=== PATIENT | male | born 1955 | race Caucasian/White ===

== ENCOUNTER → 2021-11-17 | Outpatient (CLI) | payer MEDICARE, BC, SELFPAY ==
[2021-11-17 12:12] LABS: Absolute Lymphocyte Count 2.08 X10^3/uL (0.83-4.51); Absolute Neutrophil Count 3.7 X10^3/uL (2.0-7.7); Basophil# 0.03 X10^3/uL; Basophil% 0.5 % (0-1); Eosinophil# 0.03 X10^3/uL; Eosinophils% 0.5 % (0-5); Hematocrit 44.7 % (40-54); Hemoglobin 14.9 g/dL (13.0-16.5); Lymphocyte # 2.08 X10^3/ul (0.83-4.51); Lymphocyte % 33.2 % (19-41); Mean Corp Hgb Conc 33.3 g/dL (32-36); Mean Corpuscular Hgb 29.1 pg (27.0-32.0); Mean Corpuscular Volume 87.3 fL (80-94); Mean Platelet Vol. 8.6 fl (6.2-12.0); Monocyte# 0.44 X10^3/uL; NRBC Flagged by Analyzer 0 % (0-5); Neutrophil # 3.67 X10^3/uL (2.7-7.7); Neutrophil % 58.5 % (47-70); Platelet Count 214 K/mm3 (150-450); RBC Distribution Width CV 13.2 % (11.6-14.6); RBC Distribution Width SD 42.4 fl (35.1-43.9); Red Blood Count 5.12 M/mm3 (4.6-6.2); White Blood Count 6.3 K/mm3 (4.4-11.0)
[2021-11-17 12:44] LABS: Vitamin D,25 Hydroxy 31.7 ng/mL
[2021-11-17 13:07] LABS: ALB/GLOB Ratio 1.2 RATIO (0.9-2.4); AST(SGOT) 12 U/L (15-37); Alanine Aminotransfer ALT/SGPT 25 U/L (16-61); Albumin, Serum 3.8 g/dL (3.2-5.0); Alkaline Phosphatase 72 U/L (45-117); Anion Gap 8 (5-15); BUN 18 mg/dL (7-18); BUN/Creat Ratio 19.1 RATIO (10-20); Calcium,Total 8.8 mg/dL (8.5-10.1); Chloride 106 mmol/L (98-107); Cholesterol 103 mg/dL (200); Creatinine, Serum 0.94 mg/dL (0.70-1.30); EST Glomerular Filtration Rate 85 mL/min (>60); Est Glom Filt Rate - Afr Amer 103 mL/min (>60); Globulin 3.3 g/dL (2.2-4.2); Glucose 97 mg/dL (74-106); High Density Lipoprotein 70 mg/dL; PSA,Total - Annual Screen 0.64 ng/mL (0.00-4.00); Potassium 3.9 mmol/L (3.5-5.1); Protein, Total 7.1 g/dL (6.4-8.2); Sodium Level 140 mmol/L (136-145); Thyroid Stim Hormone (TSH) 2.12 uIU/mL (0.358-3.74); Triglycerides 60 mg/dL; Very Low Density Lipoprotein 12 mg/dL (5-40)
== END | disposition home or self-care (01) ==
LOC: MTLAB 11:05
PROVIDERS: PCP Internal Medicine; Referring Provider Internal Medicine; Visit Provider Internal Medicine
DX: I49.49 Other premature depolarization (principal); Z87.448 Personal history of other diseases of urinary system; Z12.5 Encounter for screening for malignant neoplasm of prostate; E78.5 Hyperlipidemia, unspecified; E55.9 Vitamin D deficiency, unspecified
CPT/HCPCS: 36415; 80053; 80061; 82306; 84153; 84443; 85025; G0103

== ENCOUNTER 2021-12-29 06:02 | Day surgery (SDC) | payer MEDICARE, BC, SELFPAY ==
[2021-12-29] VITALS (11 sets, daily range): BP systolic 107–145; BP diastolic 79–101; PULSE 76–95; RESP 16; TEMP 36.2–36.8; O2SAT 93–99; BMI 29.2
--- NOTE | 2021-12-29 06:09 | PCM.HP.STD ---
[facility] - General General Date of Service: 12/29/21 Chief Complaint: Screening for intestinal cancer [facility] Narrative LORE VALENTINE, is a 66 M who presents for screening colonoscopy today. He has not had a previous one. He denies any abdominal pain. No bright red blood per rectum or melena. No unexpected weight loss. He states that he tolerated the bowel prep well. [facility] Medical History (Updated 12/26/21 @ 15:43 by Zenaida High) Back pain Dislocation, shoulder History of pain when walking Non-smoker Wears glasses Home Medications NK 11/09/21 [History Last Taken Unknown] Allergy/AdvReac Type Severity Reaction Status Date / Time No Known Allergies Allergy Verified 12/26/21 15:38 Family History Father Skin cancer Bladder cancer Social History adopted: No household members: spouse housing: house current occupational status: other other: self employed in [employer] Smoking Status: Never smoker alcohol intake: never details: never been drunk substance use type: does not use well-balanced diet: daily or most days caffeine: Yes eating out: 1-3 times/week during the past year weight has: remained stable what type of physical activity do you participate in: walking sacha/catholic: [employer] seatbelt use: always do you feel safe at home: Yes ROS Constitutional Constitutional: Reports systems reviewed and no addt'l complaints, except as documented Cardiovascular Cardiovascular: Denies chest pain Respiratory/Chest Respiratory/Chest: Denies shortness of breath at rest Gastrointestinal Gastrointestinal: Denies abdominal pain, change in bowel habits, hematochezia or melena Physical Exam Const alert, oriented x3 and no apparent distress General Appearance: cooperative and comfortable Eyes General Eye: normal appearance of both eyes Neck General: normal visual inspection Chest inspection of chest normal Resp Effort and Inspection: able to speak in complete sentences and symmetric chest movement Auscultation: clear to auscultation bilaterally Cardio regular rate and regular rhythm GI soft to palpation, non-tender and non-distended Extremity no calf tenderness Neuro oriented x3 Psych thought process normal Assessment & Plan Assessment/Plan (1) Colon cancer screening: PLAN: Plan to proceed with a screening colonoscopy with possible biopsy or polypectomy as indicated. The patient presents via open access today. He has not had a previous colonoscopy. He has had an opportunity to ask and have questions answered. We will proceed as noted. Jose Cruz Kumar M.D., F.A.C.S.
[2021-12-29] MEDS: Lactated Ringers 1,000 ML 15 ML IV (06:10)
[2021-12-29] MEDS: Midazolam 5 MG/ML Syringe (06:54)
--- NOTE | 2021-12-29 07:21 | OP.COLON_ITS ---
Patient Name: Colby Bar Procedure Date: 12/29/2021 6:53 AM Date of : 1955 Age: 66 Procedure: Colonoscopy Indications: Screening for colorectal malignant neoplasm Providers: Jose Cruz Kumar MD Referring MD: Ariane Easton Md Medicines: Midazolam 3.5 mg IV, Meperidine 100 mg IV Patient Profile: Last Colonoscopy: none. The patient's first colonoscopy is today. Complications: No immediate complications. Procedure: Pre-Anesthesia Assessment: - Prior to the procedure, a History and Physical was performed, and patient medications and allergies were reviewed. The patient's tolerance of previous anesthesia was also reviewed. The risks and benefits of the procedure and the sedation options and risks were discussed with the patient. All questions were answered, and informed consent was obtained. Prior Anticoagulants: The patient has taken no previous anticoagulant or antiplatelet agents. ASA Grade Assessment: II - A patient with mild systemic disease. After reviewing the risks and benefits, the patient was deemed in satisfactory condition to undergo the procedure. After I obtained informed consent, the scope was passed under direct vision. Throughout the procedure, the patient's blood pressure, pulse, and oxygen saturations were monitored continuously. The Colonoscope was introduced through the anus and advanced to the cecum, identified by appendiceal orifice and ileocecal valve. The colonoscopy was performed without difficulty. The patient tolerated the procedure well. The quality of the bowel preparation was good. The ileocecal valve and the appendiceal orifice were photographed. Moderate Sedation: Moderate (conscious) sedation was personally administered by the endoscopist. The following parameters were monitored: oxygen saturation, heart rate, blood pressure, and response to care. Total physician intraservice time was 15 minutes. Scope In: 7:02:10 AM Scope Withdrawal Time 0 hours 6 minutes 11 seconds Scope Out: 7:14:44 AM Total Procedure Duration Time 0 hours 12 minutes 34 seconds Findings: The digital rectal exam findings include non-thrombosed internal hemorrhoids and internal hemorrhoids that prolapse with straining, but spontaneously regress to the resting position (Grade II). Pertinent negatives include normal prostate (size, shape, and consistency). Multiple diverticula were found in the entire colon. The exam was otherwise without abnormality. Impression: - Non-thrombosed internal hemorrhoids and internal hemorrhoids that prolapse with straining, but spontaneously regress to the resting position (Grade II) found on digital rectal exam. - Diverticulosis in the entire examined colon. - The examination was otherwise normal. - No specimens collected. Recommendation: - Discharge patient to home. - Resume previous diet. - Continue present medications. - Repeat colonoscopy in 10 years for screening purposes. Procedure Code(s): --- Professional --- 54590, Colonoscopy, flexible; diagnostic, including collection of specimen(s) by brushing or washing, when performed (separate procedure) 68543, 59, Moderate sedation services provided by the same physician or other qualified health continuum of care manager performing the diagnostic or therapeutic service that the sedation supports, requiring the presence of an independent trained observer to assist in the monitoring of the patient's level of consciousness and physiological status; initial 15 minutes of intraservice time, patient age 5 years or older Diagnosis Code(s): --- Professional --- Z12.11, Encounter for screening for malignant neoplasm of colon K64.1, Second degree hemorrhoids K57.30, Diverticulosis of large intestine without perforation or abscess without bleeding CPT copyright 2017 [employer]. All rights reserved. The codes documented in this report are preliminary and upon hydrochloric area supervisor review may be revised to meet current compliance requirements. Jose Cruz Kumar MD 12/29/2021 7:20:33 AM This report has been signed electronically. Number of Addenda: 0 Note Initiated On: 12/29/2021 6:53 AM
--- NOTE | 2021-12-29 07:21 | OP.CCLET_ITS ---
12/29/2021 Ariane Easton [facility] [address] [place] [address] Re : Colonoscopy procedure for Colby Bar Dear Dr. Easton This procedure was performed on Wednesday, December 29, 2021. My impressions and recommendations are as follows: Impressions : - Non-thrombosed internal hemorrhoids and internal hemorrhoids that prolapse with straining, but spontaneously regress to the resting position (Grade II) found on digital rectal exam. - Diverticulosis in the entire examined colon. - The examination was otherwise normal. - No specimens collected. Recommendations : - Discharge patient to home. - Resume previous diet. - Continue present medications. - Repeat colonoscopy in 10 years for screening purposes. My findings are described in the full procedure note, which is enclosed. If I can be of further assistance, please feel free to contact me at Doctor phone number(s): Work: . Sincerely, Jose Cruz Kumar MD 12/29/2021 7:20:33 AM This report has been signed electronically.
== END 2021-12-29 08:15 | disposition home or self-care (01) ==
LOC: EN 06:02 → AC 06:03
PROVIDERS: PCP Internal Medicine; Visit Provider Surgery
PROC: 0DJD8ZZ Inspection of Lower Intestinal Tract, Via Natural or Artificial Opening Endoscopic (ICD-10-PCS; CPT 45378; principal; 2021-12-29 06:55)
DX: Z12.11 Encounter for screening for malignant neoplasm of colon (principal); K57.30 Diverticulosis of large intestine without perforation or abscess without bleeding; K64.1 Second degree hemorrhoids
CPT/HCPCS: 45378; 99152; 99153; J7120

== ENCOUNTER → 2022-01-11 | Outpatient (CLI) | payer MEDICARE, BC, SELFPAY ==
--- NOTE | 2022-01-11 09:50 | RAD_ITS ---
EXAM: XR RIGHT HIP WITH PELVIS WHEN PERFORMED, 2 OR 3 VIEWS CLINICAL INDICATION: Right hip pain TECHNIQUE: Two or three views of the right hip with pelvis when performed. This report was created using [employer] report generation technology. COMPARISON: None. FINDINGS: BONES/JOINTS: Marked arthritic changes of the right hip noted consisting of significant joint space narrowing, bony sclerosis and subchondral cyst formation. Deformity of the right femoral head suggestive of chronic AVN. Less prominent degenerative changes of the left hip. SOFT TISSUES: Normal. No soft tissue swelling or gas. RAD/HIP, UNI W/ Pelvis 2-3 Views IMPRESSION: No acute fracture or subluxation. 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 Electronically Signed: Naun Navas MD at 10:42 EDT ,
== END | disposition home or self-care (01) ==
LOC: RAD 09:43
PROVIDERS: PCP Internal Medicine; Referring Provider Internal Medicine; Visit Provider Internal Medicine
DX: M25.551 Pain in right hip (principal); M76.899 Other specified enthesopathies of unspecified lower limb, excluding foot
CPT/HCPCS: 73502

== ENCOUNTER 2022-10-05 10:09 | Outpatient (RCR) | payer MEDICARE, BC, SELFPAY | END 2022-10-05 19:00 | disposition home or self-care (01) | LOC: PT 10:09 | PROVIDERS: PCP Internal Medicine; Visit Provider Orthopaedic Surgery | DX: M16.11 Unilateral primary osteoarthritis, right hip (principal) | CPT/HCPCS: 97110; 97161 ==

== ENCOUNTER 2022-10-07 02:29 | Emergency (ER) | payer MEDICARE, BC, SELFPAY ==
[2022-10-07 02:30] VITALS: BP 146/98; PULSE 73; RESP 17; TEMP 36.1; O2SAT 98; BMI 29.3
--- NOTE | 2022-10-07 02:54 | EDS_ITS ---
HPI History of Present Illness Chief Complaint: Laceration Detail of Chief Complaint: Left forearm laceration Informant: patient Onset/Context/Timing Onset: Yesterday Narrative Narrative: Patient presents with a forearm laceration that occurred approximately 13 hours ago. Patient states he slipped on metal and fell hitting his left forearm causing a laceration. They tried to hold it together with butterfly bandages but presented due to continued mild bleeding and poor approximation of the wound. Patient is unsure of his last tetanus update. [facility] Medical History Back pain Dislocation, shoulder Factor 5 Leiden mutation, heterozygous History of pain when walking Non-smoker Wears glasses Home Medications ascorbic acid 125 mg-collagen, hydrolyzed 740 mg capsule (Collagen Plus Vitamin C) cap PO 10/05/22 [History Last Taken Unknown] coagulation factor IX 500 (+/-) unit intravenous solution 1 unit .Route 10/05/22 [History Last Taken Unknown] cephalexin 500 mg capsule 500 mg PO Q12 #14 CAPSULES 10/07/22 [Rx Last Taken Unknown] Allergy/AdvReac Type Severity Reaction Status Date / Time No Known Allergies Allergy Verified 10/07/22 02:30 Family History Father Skin cancer Bladder cancer Social History adopted: No household members: spouse housing: house current occupational status: other other: self employed in [employer] Smoking Status: Never smoker alcohol intake: never details: never been drunk substance use type: does not use well-balanced diet: daily or most days caffeine: Yes eating out: 1-3 times/week during the past year weight has: remained stable what type of physical activity do you participate in: walking sacha/buddhist: [employer] seatbelt use: always do you feel safe at home: Yes ROS ROS ED Constitutional Constitutional ED: Denies chills or fever(s) Eyes Eyes: Denies change in vision ENT ENT ED: Denies sore throat Cardiovascular Cardiovascular: Denies chest pain Respiratory/Chest Respiratory/Chest: Denies dyspnea Gastrointestinal Gastrointestinal: Denies abdominal pain, nausea or vomiting Musculoskeletal Musculoskeletal: Reports extremity pain; Denies back pain Integumentary Reports other Details: Left forearm laceration ; Denies Abrasions or rash Neurologic Neurologic: Denies headache(s), paresthesias or weakness Psychiatric Psychiatric: Denies anxiety or depression Endocrine Endocrinology: Denies polydipsia or polyuria Allergic/Immunologic Allergic/Immunologic ED: Denies lip swelling or urticaria EXAM Physical Exam Const Vital Signs: 10/07/22 02:30 Temperature 96.9 F L Temperature Source Temporal Pulse Rate 73 Respiratory Rate 17 Blood Pressure 146/98 H Blood Pressure Mean 114 Pulse Ox 98 Oxygen Delivery Method Room Air Positive well nourished and well developed General Appearance ED: well developed HEENT Reports normocephalic and head/scalp atraumatic Eyes PERRL and EOMs intact bilaterally Neck supple Chest Wall inspection of chest normal and palpation of chest normal Resp normal respiratory effort and clear to auscultation bilaterally Cardio regular rate and regular rhythm GI Palpation: soft Extremity Extremity Narrative: 5 cm laceration along the ulnar side of the left forearm. Full range of motion at all joints without difficulty. Minimal bleeding. Neuro oriented x3 and no sensory deficits noted Sensorium / Orientation: alert Motor Exam: strength 5/5 throughout Psych mental status grossly normal MDM MDM MDM Narrative Medical decision making narrative: Tetanus update provided. Due to the gaping nature of the wound it will require suture repair. We discussed that this is being performed more than 12 hours after the initial injury which increases his risk of infection. He will be treated with Keflex to help prevent infection. Wound is anesthetized with 6 cc of 1% lidocaine. Wound was thoroughly cleansed and irrigated. Wound was explored with cotton tip swabs. Skin is closed with 5 simple interrupted sutures of 4-0 nylon. Antibiotic ointment applied along with dressing. Tetanus update is given and first dose of Keflex. Patient is to have sutures removed in 1 week. Discharge Plan Triage Chief Complaint: Laceration ED Provider: Meka Mcmahon Dx/Rx/DC Orders Clinical Impression: Laceration of forearm Instructions: ED Laceration Extremity Prescriptions: New cephalexin 500 mg capsule 500 mg PO Q12 Qty: 14 0RF No Action coagulation factor IX 500 (+/-) unit recon soln 1 unit .Route Rx Instructions: as prescribed Collagen Plus Vitamin C 125-740 mg capsule PO Primary Care Provider: Ariane Easton Referrals: Ariane Easton MD [Primary Care Provider] - 7 Days for suture removal Disposition Disposition: Home, Self Care
[2022-10-07] MEDS: Diphth,Pertuss(Acell),Tet Vac 0.5 ML Vial IM (03:02)
[2022-10-07] MEDS: Cephalexin 250 MG Capsule 500 MG PO (03:04)
[2022-10-07] MEDS: Lidocaine 1% (20 ml mdv) 20 ML Vial INFILT (03:05)
[2022-10-07 03:09] VITALS: PULSE 74; RESP 16; O2SAT 98
== END 2022-10-07 03:26 | disposition home or self-care (01) ==
PROVIDERS: Emergency Provider Emergency Medicine; PCP Internal Medicine; Visit Provider Emergency Medicine
DX: S51.819A Laceration without foreign body of unspecified forearm, initial encounter (principal); W01.10XA Fall on same level from slipping, tripping and stumbling with subsequent striking against unspecified object, initial encounter; Z23 Encounter for immunization
CPT/HCPCS: 12002; 90715; 99284

== ENCOUNTER → 2023-03-20 | Outpatient (CLI) | payer MEDICARE, BC, SELFPAY ==
--- NOTE | 2023-03-20 10:52 | ECHOD_ITS ---
Reason For Study: PRE-OP CLEARANCE Procedure This was a 2D Doppler, Color Flow transthoracic echocardiogram. Exam performed in department. Left Ventricle Normal size and thickness. The left ventricular ejection fraction is 65 %. Stage 1 diastolic dysfunction. Right Ventricle Normal right ventricle. Atria The left and right atria are normal. Mitral Valve Trivial mitral valve insufficiency. Tricuspid Valve Trivial tricuspid valve insufficiency. Normal pulmonary artery pressure. Aortic Valve Trisinus/trileaflet aortic valve. Mild (1+) aortic valve insufficiency. Pulmonic Valve The pulmonic valve is not well visualized. Great Vessels Normal sized aortic root. Pericardium/Pleural No pericardial effusion. MMode/2D Measurements & Calculations LVIDd: 3.6 cm IVSd: 0.78 cm LVOT diam: 2.1 cm LVIDs: 2.5 cm LVPWd: 0.87 cm LVOT area: 3.4 cm2 RVDd: 3.5 cm FS: 30.2 % Ao root diam: 3.5 cm LAV(MOD-bp): 33.5 ml LVAd ap4: 29.7 cm2 LAV(MOD-bp) Indexed: 16.7 ml/m2 LVLd ap4: 8.5 cm LAV(MOD-sp2): 46.1 ml EDV(MOD-sp4): 84.1 ml LAV(MOD-sp4): 25.0 ml EDV(sp4-el): 88.1 ml LVAs ap4: 18.7 cm2 LVLs ap4: 7.0 cm ESV(MOD-sp4): 41.8 ml ESV(sp4-el): 42.6 ml EF(MOD-sp4): 50.3 % EF(sp4-el): 51.7 % LVAd ap2: 30.9 cm2 SV(MOD-sp4): 42.3 ml SV(MOD-sp2): 46.7 ml LVLd ap2: 9.1 cm EDV(MOD-sp2): 86.4 ml EDV(sp2-el): 89.6 ml LVAs ap2: 19.4 cm2 LVLs ap2: 8.1 cm ESV(MOD-sp2): 39.7 ml ESV(sp2-el): 39.3 ml EF(MOD-sp2): 54.1 % SV(sp4-el): 45.5 ml LA dimension(2D): 3.6 cm LA A4 area: 12.7 cm2 RA A4 area: 12.7 cm2 TAPSE: 2.6 cm Time Measurements MV dec time: 0.17 sec Doppler Measurements & Calculations MV E max rah: 50.8 cm/sec Lat Peak E' Rah: 10.8 cm/sec Med Peak E' Rah: 9.8 cm/sec MV A max rah: 80.6 cm/sec E/E' lat: 4.7 E/E' med: 5.2 MV E/A: 0.63 Ao V2 max: 132.6 cm/sec AI max rah: 391.6 cm/sec MV dec slope: 299.3 cm/sec2 Ao max P.0 mmHg AI max P.3 mmHg Ao V2 mean: 99.5 cm/sec Ao mean P.3 mmHg AI dec slope: 164.0 cm/sec2 Ao V2 VTI: 22.7 cm AI P1/2t: 699.3 msec AV (velocity ratio): 0.90 DEBBIE(I,D): 3.1 cm2 DEBBIE(V,D): 2.9 cm2 LV V1 max: 113.7 cm/sec SV(LVOT): 69.5 ml PA V2 max: 171.2 cm/sec LV V1 max P.2 mmHg PA max PG (full): 9.7 mmHg LV V1 mean P.3 mmHg LV V1 mean: 87.6 cm/sec LV V1 VTI: 20.5 cm TR max rah: 218.9 cm/sec TR max P.2 mmHg ECHO/Echo Complete Interpretation Summary The left ventricular ejection fraction is 65 %. Stage 1 diastolic dysfunction. Mild (1+) aortic valve insufficiency. Hepatic cysts noted. Consider ultrasound liver for further evaluation. Ordering Physician: Ariane Easton Referring Physician: Ariane Easton M.D. Performed By: Monica Pennington RDCS
== END | disposition home or self-care (01) ==
LOC: CVS 10:50
PROVIDERS: PCP Internal Medicine; Referring Provider Specialist; Visit Provider Specialist
DX: Z01.818 Encounter for other preprocedural examination (principal); Z01.810 Encounter for preprocedural cardiovascular examination; I49.49 Other premature depolarization; M16.11 Unilateral primary osteoarthritis, right hip; R94.31 Abnormal electrocardiogram [ECG] [EKG]
CPT/HCPCS: 93005; 93306

== ENCOUNTER → 2023-03-21 | Outpatient (CLI) | payer MEDICARE, BC, SELFPAY ==
[2023-03-21 10:21] LABS: Absolute Lymphocyte Count 1.73 X10^3/uL (0.83-4.51); Basophil# 0.03 X10^3/uL; Basophil% 0.6 % (0-1); Eosinophil# 0.03 X10^3/uL; Eosinophils% 0.6 % (0-5); Hemoglobin 14.9 g/dL (13.0-16.5); Lymphocyte # 1.73 X10^3/ul (0.83-4.51); Lymphocyte % 33.4 % (19-41); Mean Corp Hgb Conc 32.4 g/dL (32-36); Mean Corpuscular Volume 86.5 fL (80-94); Mean Platelet Vol. 8.4 fl (6.2-12.0); Monocyte# 0.42 X10^3/uL; Monocyte% 8.1 % (0-10); NRBC Flagged by Analyzer 0 % (0-5); Neutrophil # 2.95 X10^3/uL (2.7-7.7); Neutrophil % 56.9 % (47-70); Platelet Count 212 K/mm3 (150-450); RBC Distribution Width CV 13.2 % (11.6-14.6); RBC Distribution Width SD 41.1 fl (35.1-43.9); Red Blood Count 5.32 M/mm3 (4.6-6.2); White Blood Count 5.2 K/mm3 (4.4-11.0)
[2023-03-21 10:37] LABS: Albumin, Serum 3.8 g/dL (3.2-5.0); Anion Gap 4 (5-15); BUN 22 mg/dL (7-18); BUN/Creat Ratio 21.6 RATIO (10-20); Calcium,Total 8.7 mg/dL (8.5-10.1); Chloride 108 mmol/L (98-107); Creatinine, Serum 1.02 mg/dL (0.70-1.30); EST Glomerular Filtration Rate 78 mL/min (>60); Est Glom Filt Rate - Afr Amer 94 mL/min (>60); Glucose 101 mg/dL (74-106); Potassium 4.7 mmol/L (3.5-5.1); Sodium Level 140 mmol/L (136-145)
== END | disposition home or self-care (01) ==
LOC: LAB.FUTURE 09:46 → LAB 09:48
PROVIDERS: PCP Internal Medicine; Visit Provider Specialist
DX: Z01.818 Encounter for other preprocedural examination (principal); Z01.810 Encounter for preprocedural cardiovascular examination
CPT/HCPCS: 36415; 80048; 82040; 85025

== ENCOUNTER → 2023-07-22 | Outpatient (CLI) | payer MEDICARE, BC, SELFPAY ==
[2023-07-22 12:35] LABS: Erythrocyte Sedimentation Rate 6 mm/hr (0-20)
[2023-07-22 12:39] LABS: Absolute Lymphocyte Count 1.81 X10^3/uL (0.83-4.51); Basophil# 0.03 X10^3/uL; Basophil% 0.6 % (0-1); Eosinophil# 0.04 X10^3/uL; Eosinophils% 0.7 % (0-5); Hematocrit 44.9 % (40-54); Hemoglobin 14.9 g/dL (13.0-16.5); Lymphocyte # 1.81 X10^3/ul (0.83-4.51); Lymphocyte % 33.9 % (19-41); Mean Corp Hgb Conc 33.2 g/dL (32-36); Mean Corpuscular Hgb 28.2 pg (27.0-32.0); Mean Corpuscular Volume 84.9 fL (80-94); Monocyte% 7.5 % (0-10); NRBC Flagged by Analyzer 0 % (0-5); Neutrophil # 3.04 X10^3/uL (2.7-7.7); Neutrophil % 56.9 % (47-70); Platelet Count 204 K/mm3 (150-450); RBC Distribution Width CV 13.4 % (11.6-14.6); RBC Distribution Width SD 41.9 fl (35.1-43.9); Red Blood Count 5.29 M/mm3 (4.6-6.2); White Blood Count 5.3 K/mm3 (4.4-11.0)
[2023-07-22 12:52] LABS: CRP < 2.90 mg/L (0.0-3.0)
== END | disposition home or self-care (01) ==
PROVIDERS: PCP Internal Medicine; Referring Provider Internal Medicine; Visit Provider Internal Medicine
DX: M25.551 Pain in right hip (principal)
CPT/HCPCS: 36415; 85025; 85652; 86140

== ENCOUNTER → 2024-05-22 | Outpatient (CLI) | payer MEDICARE, BC, SELFPAY ==
--- NOTE | 2024-05-22 09:19 | RAD_ITS ---
PROCEDURE: WRIST MIN 3 VIEWS REASON FOR EXAM: History of dog bite to the wrist. TECHNIQUE: Three views of the left wrist were obtained. COMPARISON: None. FINDINGS: LEFT WRIST: No visible fracture. No suspicious bone lesion. Normal alignment. Soft tissue swelling. No radiopaque foreign body is seen. RAD/Wrist min 3 Views IMPRESSION: Soft tissue swelling. No radiopaque foreign body is seen. Reading Location: [facility]
== END | disposition home or self-care (01) ==
LOC: MTRAD 09:19
PROVIDERS: PCP Internal Medicine; Referring Provider Nurse Practitioner Family; Visit Provider Nurse Practitioner Family
DX: M25.532 Pain in left wrist (principal)
CPT/HCPCS: 73110

== ENCOUNTER 2024-05-26 08:58 | Emergency (ER) | payer MEDICARE, BC, SELFPAY ==
[2024-05-26 08:58] VITALS: BP 143/96; PULSE 110; RESP 20; TEMP 37.4; O2SAT 98
--- NOTE | 2024-05-26 09:16 | EX.ED.VISEXT ---
HPI History of Present Illness Chief Complaint: Bite Informant: patient and spouse/S.O. Narrative Narrative: 68-year-old male was bitten by his neighbors dog last week around 5 days ago when he was trying to coax the dog into going back to his home, reaching to his caller and the dog bit him but was not ill. He went to urgent care and was placed on Augmentin, the wound got worse and he went back to urgent care 2 days later and they discontinued the Augmentin and placed him instead on clindamycin and ciprofloxacin. He states now it continues to worsen at the volar aspect of his left wrist, and draining liquid, and he has had some low-grade fevers in the 100 range. ROS ROS ED Constitutional Constitutional ED: Reports fever(s); Denies chills, malaise or weakness Eyes Eyes: Denies change in vision or diplopia ENT ENT ED: Denies rhinorrhea or sore throat Cardiovascular Cardiovascular: Denies chest pain or palpitations Respiratory/Chest Respiratory/Chest: Denies cough or dyspnea Gastrointestinal Gastrointestinal: Denies abdominal pain, diarrhea, nausea or vomiting Genitourinary Genitourinary ED: Denies dysuria or hematuria Musculoskeletal Musculoskeletal: Reports extremity pain; Denies neck pain Integumentary Reports rash and wounds; Denies Abrasions Neurologic Neurologic: Denies paresthesias or weakness Psychiatric Psychiatric: Denies anxiety or suicidal thoughts [facility] Medical History Factor 5 Leiden mutation, heterozygous Wears glasses Back pain Non-smoker History of pain when walking Dislocation, shoulder Home Medications ?Medication ?Instructions ?Recorded ?Last Taken ?Type ciprofloxacin HCl 250 mg tablet 250 mg PO BID 7 days #14 tabs 05/24/24 05/26/24 Rx (Cipro) clindamycin HCl 300 mg capsule 300 mg PO TID 7 days #21 caps 05/24/24 05/26/24 Rx mupirocin 2 % topical ointment 1 applic topical BID #15 grams 05/24/24 05/26/24 Rx Allergy/AdvReac Type Severity Reaction Status Date / Time No Known Allergies Allergy Verified 05/24/24 12:50 Family History Father Skin cancer Bladder cancer Social History adopted: No household members: spouse housing: house current occupational status: other other: self employed in [employer] Smoking Status: Never smoker alcohol intake: never details: never been drunk substance use type: does not use well-balanced diet: daily or most days caffeine: Yes eating out: 1-3 times/week during the past year weight has: remained stable what type of physical activity do you participate in: walking sacha/taoism: Rastafarian seatbelt use: always do you feel safe at home: Yes EXAM Physical Exam Const Vital Signs: 05/26/24 08:58 05/26/24 09:58 05/26/24 10:00 Temperature 99.3 F H Temperature Source Oral Pulse Rate 110 H 78 74 Respiratory Rate 20 H 18 18 Blood Pressure 143/96 H Blood Pressure Mean 111 Pulse Ox 98 98 98 Oxygen Delivery Method Room Air Room Air 05/26/24 11:00 Temperature 98.2 F Temperature Source Oral Pulse Rate 78 Respiratory Rate 18 Blood Pressure 132/95 H Blood Pressure Mean 107 Pulse Ox 93 Oxygen Delivery Method Positive well nourished and well developed Constitutional Narrative: Well-appearing General Appearance ED: well developed and NAD HEENT Reports moist mucous membranes normocephalic and atraumatic Eyes PERRL and EOMs intact bilaterally Neck full ROM and supple Resp normal respiratory effort and clear to auscultation bilaterally Cardio regular rate, regular rhythm and no murmurs GI non-tender and non-distended Auscultation: normoactive bowel sounds Palpation: soft Back/Spine normal ROM and normal to inspection General Back: other FROM Extremity normal to inspection Extremity Narrative: Healing wound on the dorsum of the left wrist, tender erythematous puncture wound on the volar aspect of the left wrist, there is some expressible transparent yellow fluid from it but no claus pus expressible at this time. The dorsum of the hand is edematous and erythematous but not tender. Some erythema emanates proximally from the volar wound, but only 3 to 4 cm, and proximal to this there is no tenderness or abnormality or lymphangitis. No epitrochlear lymphadenopathy or tenderness. Limited range of motion of the wrist due to pain but he is able to move it, and passively extending all of his fingers creates no significant issues. General Extremety ED: Yes tenderness; Negative for pulses abnormal General Extremity: Negative for pulses abnormal Neuro oriented x3, no focal motor deficits and no sensory deficits noted Sensorium / Orientation: alert Motor Exam: strength 5/5 throughout Psych mental status grossly normal and thought process normal Skin Skin Narrative: Left hand and wrist findings as above. No other rashes. No petechia or bullae. Rashes: no rashes MDM MDM MDM Narrative Medical decision making narrative: I and the perform see the procedure note. I obtained some labs including blood cultures given his fevers and a lactic acid. These are all normal including his white blood count of 5.1, arguing against sepsis as does his normal lactic acid. I spoke with Dr. Barboza, he said it would be reasonable to see him as an outpatient, he has clinic openings day after tomorrow, therefore at this time I think he probably just needed this abscess opened and I am going to have him continue the antibiotics that he is on which are appropriate, he was given additional IV dose of Zosyn here, and he is comfortable with that plan. Advised to call for an appointment soon as possible. Lab Data Attestation: I reviewed the patient's lab results. Labs: Laboratory Results - last 24 hr 05/26/24 09:24 WBC 5.1 RBC 4.76 Hgb 13.5 Hct 40.6 MCV 85.3 MCH 28.4 MCHC 33.3 RDW Std Deviation 40.5 RDW Coeff of [place] 13.1 Plt Count 195 MPV 8.2 Immature Gran % (Auto) 0.400 Neut % (Auto) 69.0 Lymph % (Auto) 18.9 L [place] % (Auto) 10.3 H Eos % (Auto) 1.0 Baso % (Auto) 0.4 Absolute Neuts (auto) 3.5 Absolute Lymphs (auto) 0.97 Nucleated RBC % 0 Sodium 135 Potassium 3.9 Chloride 102 Carbon Dioxide 21.0 Anion Gap 11 BUN 21 H Creatinine 0.86 Est GFR (MDRD) Non-Af 95 BUN/Creatinine Ratio 24.5 H Glucose 108 H Lactic Acid < 1.0 Calcium 8.9 Management Discussion w/another healthcare provider: [employer] Team Lead (Susan Barboza) Procedures Other Procedures Procedure(s): Complex abscess incision and drainage: After informed consent from the patient and a local prep with chlorhexidine and anesthesia with 2 cc of plain 1% lidocaine to the abscess on the volar left wrist, it was incised superficially with a #10 blade, I then probed bluntly with hemostats and deloculated, I feel no tendon involved in this cavity, blood was evacuated, no gross pus, but I irrigated the cavity and packed it with quarter inch gauze and dressed it with bacitracin. Patient tolerated well no complications. Discharge Plan Triage Chief Complaint: Bite ED Provider: Akhil Sarkar Dx/Rx/DC Orders Clinical Impression: Open wound of left forearm due to dog bite, Abscess of left forearm Instructions: ED Abscess Incision And Drainage Prescriptions: Continued ciprofloxacin HCl [Cipro] 250 mg tablet 250 mg PO BID 7 Days Qty: 14 0RF Patient Comments: START - 05/24/24 END- 05/31/24 clindamycin HCl 300 mg capsule 300 mg PO TID 7 Days Qty: 21 0RF Patient Comments: START - 05/24/24 END- 05/31/24 mupirocin 2 % ointment 1 applic topical BID Qty: 15 0RF Primary Care Provider: Ariane Easton Referrals: Darwin Barboza MD [Med Staff - Active Staff] - 05/28/24 (Call for appointment time) Activity Restrictions/Additional Instructions: Dressing changes as needed. The gauze should be pulled out of the wound in 2 days, reasonable to see orthopedics before you do that since that they are going to be able to see you 2 days from now. Print Language: Chinese Disposition Disposition: Home, Self Care
[2024-05-26] MEDS: Piperacil/Tazobactam 3.375 GM in 0.9% Normal Saline (50mL MB+) 50 ML IV (09:32)
[2024-05-26] MEDS: Lidocaine 1% (20 ml mdv) 20 ML Vial INFILT (09:32)
[2024-05-26 09:40] LABS: Absolute Lymphocyte Count 0.97 X10^3/uL (0.83-4.51); Absolute Neutrophil Count 3.5 X10^3/uL (2.0-7.7); Basophil# 0.02 X10^3/uL; Basophil% 0.4 % (0-1); Eosinophil# 0.05 X10^3/uL; Hematocrit 40.6 % (40-54); Hemoglobin 13.5 g/dL (13.0-16.5); Lymphocyte # 0.97 X10^3/ul (0.83-4.51); Lymphocyte % 18.9 % (19-41); Mean Corp Hgb Conc 33.3 g/dL (32-36); Mean Corpuscular Hgb 28.4 pg (27.0-32.0); Mean Corpuscular Volume 85.3 fL (80-94); Mean Platelet Vol. 8.2 fl (6.2-12.0); Monocyte# 0.53 X10^3/uL; Monocyte% 10.3 % (0-10); NRBC Flagged by Analyzer 0 % (0-5); Neutrophil # 3.54 X10^3/uL (2.7-7.7); Platelet Count 195 K/mm3 (150-450); RBC Distribution Width CV 13.1 % (11.6-14.6); RBC Distribution Width SD 40.5 fl (35.1-43.9); Red Blood Count 4.76 M/mm3 (4.6-6.2); White Blood Count 5.1 K/mm3 (4.4-11.0)
[2024-05-26 09:58] VITALS: PULSE 78; RESP 18; O2SAT 98
[2024-05-26 10:00] VITALS: PULSE 74; RESP 18; O2SAT 98
--- NOTE | 2024-05-26 10:38 | CONS.ORTHO ---
HPI Consult Data Date of Consult: 05/26/24 HPI Narrative HPI Narrative: LORE VALENTINE, is a 68 M who presents, called by Dr. Hart - infected dog bite of the hand. [facility] Medical History Factor 5 Leiden mutation, heterozygous Wears glasses Back pain Non-smoker History of pain when walking Dislocation, shoulder Home Medications ?Medication ?Instructions ?Recorded ?Last Taken ?Type ciprofloxacin HCl 250 mg tablet 250 mg PO BID 7 days #14 tabs 05/24/24 05/26/24 Rx (Cipro) clindamycin HCl 300 mg capsule 300 mg PO TID 7 days #21 caps 05/24/24 05/26/24 Rx mupirocin 2 % topical ointment 1 applic topical BID #15 grams 05/24/24 05/26/24 Rx Allergy/AdvReac Type Severity Reaction Status Date / Time No Known Allergies Allergy Verified 05/24/24 12:50 Family History Father Skin cancer Bladder cancer Social History adopted: No household members: spouse housing: house current occupational status: other other: self employed in [employer] Smoking Status: Never smoker alcohol intake: never details: never been drunk substance use type: does not use well-balanced diet: daily or most days caffeine: Yes eating out: 1-3 times/week during the past year weight has: remained stable what type of physical activity do you participate in: walking sacha/voodoo: Zoroastrian seatbelt use: always do you feel safe at home: Yes Vital Signs Vital Signs Vital Signs: 05/26/24 08:58 05/26/24 09:58 05/26/24 10:00 Temperature 99.3 F H Temperature Source Oral Pulse Rate 110 H 78 74 Respiratory Rate 20 H 18 18 Blood Pressure 143/96 H Blood Pressure Mean 111 Pulse Ox 98 98 98 Oxygen Delivery Method Room Air Room Air Lab / Micro Data 05/26/24 09:24 05/26/24 09:24 Labs: Laboratory Results - last 24 hr 05/26/24 09:24: WBC 5.1, RBC 4.76, Hgb 13.5, Hct 40.6, MCV 85.3, MCH 28.4, MCHC 33.3, RDW Std Deviation 40.5, RDW Coeff of [place] 13.1, Plt Count 195, MPV 8.2, Immature Gran % (Auto) 0.400, Neut % (Auto) 69.0, Lymph % (Auto) 18.9 L, [place] % (Auto) 10.3 H, Eos % (Auto) 1.0, Baso % (Auto) 0.4, Absolute Neuts (auto) 3.5, Absolute Lymphs (auto) 0.97, Nucleated RBC % 0 Assessment & Plan Assessment/Plan (1) Dog bite: QUALIFIERS: Encounter type: subsequent encounter Qualified Code(s): W54.0XXD - Bitten by dog, subsequent encounter PLAN: 68 M with infection of the hand after a dog bite. Packed, I and D. by Dr. Hart. no septic joint or flexor tenosynovitis per him. OK to follow up in clinic . Patient on broad spec abx. Will arrange for plastics opinion and ID opinion as well.
[2024-05-26 10:41] LABS: Lactic Acid < 1.0 mmol/L (0.0-2.0)
[2024-05-26 10:48] LABS: Anion Gap 11 (5-15); BUN 21 mg/dL (4-19); BUN/Creat Ratio 24.5 RATIO (10-20); Calcium,Total 8.9 mg/dL (7.6-11.0); Chloride 102 mmol/L (98-108); Creatinine, Serum 0.86 mg/dL (0.70-1.20); EST Glomerular Filtration Rate 95 (>60); Glucose 108 mg/dL (70-99); Potassium 3.9 mmol/L (3.3-5.1); Sodium Level 135 mmol/L (133-145)
[2024-05-26 11:00] VITALS: BP 132/95; PULSE 78; RESP 18; TEMP 36.8; O2SAT 93
[2024-05-26 11:48] VITALS: BP 132/95; PULSE 78; RESP 18; TEMP 36.8; O2SAT 93
== END 2024-05-26 12:03 | disposition home or self-care (01) ==
PROVIDERS: Emergency Provider Emergency Medicine; PCP Internal Medicine; Visit Provider Emergency Medicine
DX: L02.414 Cutaneous abscess of left upper limb (principal); W54.0XXA Bitten by dog, initial encounter; S51.802A Unspecified open wound of left forearm, initial encounter
CPT/HCPCS: 10060; 80048; 83605; 85025; 87040; 87070; 87205; 96365; 99282; A4216